=== PATIENT | female | born 1945 | race Caucasian/White ===

== ENCOUNTER → 2020-06-10 | Outpatient (CLI) | payer OTHER ==
[2020-06-10 12:15] LABS: Blood Urea Nitrogen 14 mg/dL (8-24); Bun/Creatinine Ratio 21.2 (12.0-20.0); CO2, Blood 29 mmol/L (21-32); Calcium, Blood 8.7 mg/dL (8.5-10.1); Chloride, Blood 103 mmol/L (98-108); Creatinine, Blood 0.66 mg/dL (0.40-1.00); Glomerular Filtration Rate >60 (60-); Glucose, Blood 97 mg/dL (70-99); Potassium, Blood 3.7 mmol/L (3.5-5.5); Sodium, Blood 140 mmol/L (136-145); Troponin I <0.017 ng/mL (0.000-0.040)
[2020-06-10 15:45] LABS: Anion Gap 9 mmol/L (6-16)
== END | disposition home or self-care (01) ==
LOC: LAB SHORT 11:10 → LAB EV 11:10
PROVIDERS: Family Medicine
DX: I10 Essential (primary) hypertension (principal)
CPT/HCPCS: 80048; 84484

== ENCOUNTER → 2021-02-18 | Outpatient (CLI) | payer OTHER ==
[2021-02-18 13:48] LABS: Source, Urine Clean Catch
[2021-02-18 15:21] LABS: Appearance, Urine Clear (Clear); Bilirubin, Urine Neg (Neg); Blood, Urine Neg (Neg); Color, Urine Yellow (P-Yellow); Glucose Qualitative, Urine Neg (Neg); Ketones, Urine Neg (Neg); Leukocyte Esterase, Urine Neg (Neg); Nitrite, Urine Neg (Neg); Protein, Urine Neg (Neg); Specific Gravity, Urine 1.005 (1.003-1.022); Urobilinogen, Urine NORM (Normal)
== END | disposition home or self-care (01) ==
LOC: LAB SHORT 13:43
PROVIDERS: Obstetrics & Gynecology
DX: N39.41 Urge incontinence (principal)
CPT/HCPCS: 81003

== ENCOUNTER → 2023-06-18 | Outpatient (CLI) | payer OTHER ==
[~2023-06-18] MED LIST: CEPH250A PO
== END ==
LOC: LAB SHORT 14:07 → LAB 14:07
DX: R30.0 Dysuria (principal)
CPT/HCPCS: 87086

== ENCOUNTER 2023-07-14 09:15 | Day surgery (SDC) | payer OTHER ==
[~2023-07-14] VITALS: Ht 167.6 cm; Wt 63.0 kg
[2023-07-14] VITALS (13 sets, daily range): BP systolic 120–180; BP diastolic 68–135
[~2023-07-14 09:15] MED LIST changes: +ALBU90OI INH; +ALLEGRA ALLERG180 MG PO; +ATEN25 PO; +BUPR100ER PO; +BUSPIRONE HCL7.5 M1 PO; +CAPT50 PO; +Flonase 0.05% N16 GM
[2023-07-14] MEDS ORDERED: ATEN50 PO (10:42)
[2023-07-14] MEDS ORDERED: ARIPIPRAZOLE2 M1 PO (10:42)
[2023-07-14] MEDS ORDERED: RANOLAZINE ER500 M2 PO (10:43)
[2023-07-14] MEDS ORDERED: ZOLOFT25 MG PO (10:43)
--- NOTE | 2023-07-14 12:06 | NUR ---
PT BACK TO RECOVERY ROOM FROM LAB. PT A&Ox4. RADIAL SITE SOFT AND NON-TERNDER. NO BLEEDING NOTED. PT GIVEN ORANGE JUICE AND WATER. PT SITTING UP IN RECLINER.
--- NOTE | 2023-07-14 12:27 | NUR ---
PT GIVEN LUNCH TRAY.
--- NOTE | 2023-07-14 13:02 | NUR ---
2CC REMOVED FROM TR BAND. SITE SOFT AND NON-TENDER. NO BLEEDING NOTED.
--- NOTE | 2023-07-14 13:42 | NUR ---
2CC REMOVED FROM TR BAND. SITE SOFT AND NON-TENDER.
--- NOTE | 2023-07-14 13:55 | NUR ---
2CC REMOVED FROM TR BAND. SITE SOFT AND NON-TENDER. NO BLEEDING NOTED.
--- NOTE | 2023-07-14 14:03 | NUR ---
2CC REMOVED FROM TR BAND. SITE SOFT AND NON-TENDER. NO BLEEDING NOTED.
--- NOTE | 2023-07-14 14:37 | NUR ---
TR BAND DEFLATED @ 1415. SITE SOFT AND NON-TENDER. NO BLEEDING NOTED.
--- NOTE | 2023-07-14 15:31 | NUR ---
PT GIVEN DC INSTRUCTIONS AND VERBALIZED UNDERSTANDING. IV OUT. PT CHANGED. RADIAL SITE SOFT AND NON-TENDER PER PT. NO BLEEDING NOTED. CLOTH DOT, SLING, ARM BOARD APPLIED. PT CALLED FOR TAXI. PT TAKEN TO LBY VIA WC.
== END 2023-07-14 16:04 | disposition home or self-care (01) ==
LOC: MHTC 09:15
DX: I35.0 Nonrheumatic aortic (valve) stenosis (principal); I20.0 Unstable angina; R06.09 Other forms of dyspnea; I71.21 Aneurysm of the ascending aorta, without rupture; Z88.0 Allergy status to penicillin
CPT/HCPCS: 76937; 93454; 99152; 99153; C1769; C1887; C1894; J1644; J2250; J2405; J3010; J7030; J7050; Q9967

== ENCOUNTER 2023-11-10 04:44 | Observation (INO) | payer OTHER ==
[~2023-11-10] VITALS: Ht 162.6 cm; Wt 61.2 kg
[~2023-11-10 04:44] MED LIST changes: +ARIPIPRAZOLE2 M1 PO; +ATEN50 PO; +RANOLAZINE ER500 M2 PO; +ZOLOFT25 MG PO
[2023-11-10 05:04] LABS: BASOPHILS ABSOLUTE AUTO 0.04 K/mm3 (0.00-0.23); BASOPHILS PERCENT AUTO 1 % (0-2); EOSINOPHILS ABSOLUTE AUTO 0.07 K/mm3 (0.00-0.68); EOSINOPHILS PERCENT AUTO 1 % (0-6); Hematocrit 41.7 % (33.0-51.0); Hemoglobin 13.8 g/dL (11.5-16.0); IMMATURE GRAN ABSOLUTE AUTO 0.02 K/mm3 (0.00-0.10); IMMATURE GRAN PERCENT AUTO 0 % (0-1); LYMPHOCYTES ABSOLUTE AUTO 2.73 K/mm3 (0.84-5.20); LYMPHOCYTES PERCENT AUTO 47 % (21-46); MONOCYTES ABSOLUTE AUTO 0.42 K/mm3 (0.16-1.47); MONOCYTES PERCENT AUTO 7 % (4-13); Mean Corpuscular HGB 31.2 pg (26.0-34.0); Mean Corpuscular HGB Conc 33.1 g/dL (31.5-36.5); Mean Corpuscular Volume 94 fL (80-100); Mean Platelet Volume 11.8 fL (9.1-12.4); NEUTROPHILS ABSOLUTE AUTO 2.56 K/mm3 (1.96-9.15); NEUTROPHILS PERCENT AUTO 44 % (41-73); Platelet Count 178 K/mm3 (150-400); RDW Coefficient Variation 13.4 % (11.7-14.2); RDW Standard Deviation 46.5 fL (35.1-46.3); Red Blood Cell Count 4.43 M/mm3 (3.80-5.20); White Blood Cell Count 5.84 K/mm3 (4.00-11.30)
[2023-11-10 05:20] LABS: Prothrombin Time Results 10.5 Sec (9.7-11.5)
[2023-11-10 05:22] LABS: Albumin/Globulin Ratio 1.2 (0.8-1.8); Bilirubin, Total 0.6 mg/dL (0.1-1.0); Bun/Creatinine Ratio 28.8 (12.0-20.0); Calcium, Blood 9.4 mg/dL (8.5-10.1); Creatinine, Blood 0.7 mg/dL (0.40-1.00); Globulin, Blood 3.2 g/dL (2.2-4.0); Total Protein, Blood 7.2 g/dL (6.4-8.2)
[2023-11-10 06:56] LABS: Cholesterol 187 mg/dL (50-200); Triglycerides 121 mg/dL (30-160)
[2023-11-10] MEDS ORDERED: FURO20 PO (09:38)
[2023-11-10] MEDS ORDERED: Estrace Vagin42.5 GM UR (09:40)
[2023-11-10] MEDS ORDERED: SERT50 PO (09:46)
[2023-11-10] MEDS ORDERED: ABILIFY MYCITE2 M2 PO (10:36)
[2023-11-10] MEDS ORDERED: DOCU100 PO (10:37)
[2023-11-10 10:56] VITALS: BP 156/81
[2023-11-10] MEDS ORDERED: Ondansetron HCl 2 MG / ML 2ML Vial IV PRN (13:30)
[2023-11-10] MEDS ORDERED: Temazepam 15 MG Cap PO PRN (13:35)
[2023-11-10] MEDS ORDERED: Ondansetron 4 MG TAB PO PRN (13:35)
[2023-11-10] MEDS ORDERED: Acetaminophen 325 MG TABLET PO PRN (13:35)
[2023-11-10] MEDS ORDERED: Docusate Sodium 100 MG Cap PO PRN (13:40)
[2023-11-10] MEDS ORDERED: Albuterol HFA200 ACT/6.7 GM INH INH PRN (13:50)
[2023-11-10 15:38] VITALS: BP 141/73
--- NOTE | 2023-11-10 18:46 | NUR ---
SHIFT SUMMARY MS JENNINGS WAS ADMITTED TO MEDICAL UNIT FROM ER AT 1025AM. SHE HAS LEFT LEG/FOOT WEAKNESS AND LEFT ARM/HAND WEAKNESS. 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 C/O NUMBNESS TO LEFT JAW AND RESOLVING TINGLING TO LEFT FACE AND LEFT ARM. CAROTID DOPPLAR AND ECHO DONE AT BEDSIDE. MRI SCREENING FORM FAXED EARLIER, AWAITING MRI. WORKED WITH PHYSICAL THERAPIST. PT EDUCATED ON FALL PRECAUTIONS, SHE HAS SOME URGENCY/ STRESS INCONTINENCE AND VERBALISED UNDERSTANDING THAT SHE SHOULD NOT GET UP OOB WITHOUT ASSISTANCE. BED LOW, BED ALARM ON. CALL LIGHT IN REACH.
[2023-11-10] MEDS ORDERED: Clopidogrel Bisulfate 75 MG Tab PO SCH (19:00)
[2023-11-10 19:31] VITALS: BP 119/86
[2023-11-10] MEDS ORDERED: Ranolazine 500 MG ER Tablet PO SCH (21:00)
[2023-11-11 03:12] VITALS: BP 140/78
[2023-11-11 07:25] VITALS: BP 138/83
[2023-11-11] MEDS ORDERED: Lisinopril 20 MG Tab PO SCH (09:00)
[2023-11-11] MEDS ORDERED: Aspirin 81 MG Chew PO SCH (09:00)
[2023-11-11] MEDS ORDERED: Sertraline HCl 50 MG Tab PO SCH (09:00)
[2023-11-11] MEDS ORDERED: Enoxaparin 40 MG/0.4 ML SYR SC SCH (09:00)
[2023-11-11] MEDS ORDERED: Atenolol 50 MG Tab PO SCH (09:00)
[2023-11-11] MEDS ORDERED: Furosemide 20 MG Tab PO SCH (09:00)
[2023-11-11] MEDS ORDERED: Fluticasone 0.05% Nasal Spray SCH (09:00)
[2023-11-11] MEDS ORDERED: ARIPiprazole 2 MG Tablet PO SCH (09:00)
[2023-11-11] MEDS ORDERED: Atorvastatin 10 MG Tab PO SCH (12:00)
[2023-11-11 16:55] LABS: CHOL/HDL RATIO 3.7; Cholesterol 177 mg/dL (50-200); HDL Cholesterol 48 mg/dL (>39); LDL/HDL RATIO 2.3; Low Density Lipoprotein Chol 109 mg/dL (0-110); Triglycerides 102 mg/dL (30-160); Very Low Density Lipoprot Chol 20 mg/dL (6-32)
--- NOTE | 2023-11-11 17:48 | NUR ---
SHIFT SUMMARY PT USING FWW IN ROOM TO BATHROOM AND BACK. NEURO CHECKS WNL-HAND AND LEG STRENGTH APPEAR EQUAL. MRI ORDERED AND TECH REPORTS OF 1714 THEY HAVENT RECEIVED THE INFORMATION THEY NEED FROM JYOTI FROM [facility] LAST WEEK YET TO PERFORM MRI SAFELY. PT WITH NO PAIN THROUGH SHIFT. GRETEL BRANNON COMPLETED THIS MORNING. NO S/S OF ASPIRATION WITH MEALS OR TAKING HER MEDS.
[2023-11-11 19:39] VITALS: BP 109/76
[2023-11-12 02:45] VITALS: BP 112/78
--- NOTE | 2023-11-12 05:51 | NUR ---
END OF SHIFT SUMMARY PT A&O x4, VSS, AFEBRILE. PT ON RA, RESP RATE EVEN AND UNLABORED. PT SLEPT WELL OVERNIGHT. PT CALLS APPROPRIATELY FOR ASSISTANCE WITH TRANSFERS WITH [facility]. PT DENIED CHEST PAIN, NO SOB, NO PAIN OR DISCOMFORT. PT PLEASANT AND COOPERATIVE WITH CARE PROVIDED. PT ON TELE WITH RATE AND RHYTHM SINUS SKYE WITH ALTERATING BUNDLE BRANCH BLOCKS. PT ADMITTED FOR NUMBNESS, AND TINGLING TO L SIDE OF FACE AND NECK, EVENTUALLY SPREADING TO HER L UPPER AND LOWER EXTREMETIES. PT WORKED WELL WITH THERAPY YESTERDAY ON DAY SHIFT. PT ABLE TO SWALLOW WITHOUT ANY DIFFICULTIES. PT TAKES HER MEDS WHOLE WITH WATER. WAITING FOR DOCUMENTATION FROM [facility] THAT WAS PERFORMED AT [facility]. DAY SHIFT RN REQUESTED INFORMATION FROM [facility]RI[facility] TO SEND HERE TO MAKE SURE SHE IS SAFE TO GO FORWARD WITH MRI. CALL LIGHT WITHIN REACH, WCTM.
[2023-11-12 07:34] VITALS: BP 113/61
--- NOTE | 2023-11-12 08:17 | NUR ---
Pt. is awake and welcomes my visit. Pt. inquires about Prescription Clerk [employer] Gadiel, but welcomes this auto service writer at bedside. Pt. is very pleasant. Facilitate a rather lengthy life review whee Pt. verbalizes matters of being raised in a broken home, as wellas the miracle of health and neil she has experienced. Pt. displayed evidence of being comforted by the visit. Prayed with the Pt. and the Pt. prayed as well. Pt. verbalized gratitude for the spiritual care visit.
[2023-11-12] MEDS ORDERED: ASPI81CH PO (14:45)
[2023-11-12] MEDS ORDERED: ATOR20 PO (14:46)
[2023-11-12] MEDS ORDERED: CLOP75 PO (14:46)
[2023-11-12 15:09] VITALS: BP 111/75
--- NOTE | 2023-11-12 16:46 | NUR ---
SHIFT SUMMARY AND DISCHARGE PATIENT ALERT AND INTERACTIVE. PATIENT ABLE TO AMBULATE AROUND ROOM WITH STAND BY ASSIST. PATIENT STATES CURRENT ABILITIES ABOUT HER NORMAL. PATIENT NOTED TO HAVE TREMORS, SLOW SPEECH, AND FREQUENT BLINKING. PATIENT DENIES DX OF PARKINSONS. PATIENT WORKED WITH PT AND OT. PATIENT ABLE TO PARTICIPATE WITH SHOWER AND SAT UP IN CHAIR MOST OF THE DAY. PATIENT EAGER TO GO HOME. DISCHARGE INSTRUCTIONS REVIEWED WITH PATIENT. BELONGINGS SENT HOME WITH PATIENT. ROOM CHECK DONE BEFORE PATIENT DEPARTED. IV DC'D AND TELE REMOVED BEFORE DISCHARGE.
== END 2023-11-12 16:45 | disposition home or self-care (01) ==
LOC: ER 04:44 → MEDS 04:45
PROVIDERS: Emergency Medicine; ADMIT Internal Medicine
DX: G45.9 Transient cerebral ischemic attack, unspecified (principal); I10 Essential (primary) hypertension; E78.5 Hyperlipidemia, unspecified; F32.9 Major depressive disorder, single episode, unspecified; I35.0 Nonrheumatic aortic (valve) stenosis; Z79.899 Other long term (current) drug therapy; Z88.0 Allergy status to penicillin; Z88.8 Allergy status to other drugs, medicaments and biological substances
CPT/HCPCS: 36415; 70450; 74230; 80053; 80061; 82465; 84478; 85025; 85610; 92526; 92610; 92611; 93005; 93010; 93306; 93880; 94760; 96372; 96374; 97110; 97116; 97161; 97165; 97535; 99285-25; A9270; G0378; J1650; J2405

== ENCOUNTER 2024-05-25 12:36 | Day surgery (SDC) | payer OTHER ==
[~2024-05-25] VITALS: Ht 167.6 cm; Wt 65.7 kg
[~2024-05-25 12:36] MED LIST changes: +ABILIFY MYCITE2 M2 PO; +ASPI81CH PO; +ATOR20 PO; +Balanced Salt Epinephrine Irrigation Solution 500 mL IR SCH; +CLOP75 PO; +DOCU100 PO; +Estrace Vagin42.5 GM UR; +FURO20 PO; +Lidocaine HCl/Pf 1% 5 ML VIAL XX SCH; +Moxifloxacin HCL 0.5 MG/0.1 ML 0.4MLSYR RIGHTEYE SCH; +NS 500 ML IV ONE; +PHENYLEPHRINE\\TROPICAMIDE\\TETRACAINE OPHTHALMIC DILATING SOLN RIGHTEYE PRN; +Povidone-Iodine 450 DROP/30 ML Solution ONE; +Povidone-Iodine 450 DROP/30 ML Solution RIGHTEYE SCH; +SERT50 PO; +Tetracaine HCl/Pf 0.5% Opth Soln 4 ml ONE; +Triamcinolone Inj Susp 40 MG / ML 1ML Vial INJ SCH; +Triamcinolone Inj Susp 40 MG / ML 1ML Vial ONE
[2024-05-25] MEDS ORDERED: Amlodipine Bes2.5 MG (13:24)
[2024-05-25] MEDS ORDERED: NS 1,000 ML IV ONE (13:31)
[2024-05-25] MEDS ORDERED: Midazolam HCl 1MG / ML 2ML Vial ONE (13:41)
[2024-05-25] MEDS ORDERED: Tetracaine HCl 0.5% Opth Soln 15 ml RIGHTEYE ONE (13:45)
--- NOTE | 2024-05-25 13:47 | NUR ---
05/25/24 [id number] Kassie Dubose CONSULTED DUE TO PT HAVING AN ALLERGY TO OFLOXOCIN. PT STATES SWELLING IS THE REACTION. SPOKE WITH PT AND SHE CONFIRMED THE PREOPERATIVE DROPS DID NOT BOTHER HER. CONFIRMED IT WAS OKAY TO PROCEED WITH SURGERY.
[2024-05-25 14:20] VITALS: BP 132/69
--- NOTE | 2024-05-25 14:24 | NUR ---
05/25/24 1424 Eli Busby 1420: REPORT GIVEN TO DONNIE.ALICIA AND CARE TRANSFERRED
== END 2024-05-25 14:54 | disposition home or self-care (01) ==
LOC: ORSCSDS 12:36
PROVIDERS: Ophthalmology
PROC: 08RJ3JZ Replacement of Right Lens with Synthetic Substitute, Percutaneous Approach (ICD-10-PCS; principal; 2024-05-25 14:30)
DX: H25.811 Combined forms of age-related cataract, right eye (principal); I10 Essential (primary) hypertension; J45.909 Unspecified asthma, uncomplicated; F32.A Depression, unspecified; Z79.899 Other long term (current) drug therapy
CPT/HCPCS: J2250; J3301; J7040; V2632

== ENCOUNTER 2024-05-31 09:56 | Day surgery (SDC) | payer OTHER ==
[~2024-05-31] VITALS: Ht 167.6 cm; Wt 65.2 kg
[~2024-05-31 09:56] MED LIST changes: +Amlodipine Bes2.5 MG; +Moxifloxacin HCL 0.5 MG/0.1 ML 0.4MLSYR LEFTEYE SCH; -Moxifloxacin HCL 0.5 MG/0.1 ML 0.4MLSYR RIGHTEYE SCH; +PHENYLEPHRINE\\TROPICAMIDE\\TETRACAINE OPHTHALMIC DILATING SOLN LEFTEYE PRN; -PHENYLEPHRINE\\TROPICAMIDE\\TETRACAINE OPHTHALMIC DILATING SOLN RIGHTEYE PRN; +Povidone-Iodine 450 DROP/30 ML Solution LEFTEYE SCH; -Povidone-Iodine 450 DROP/30 ML Solution RIGHTEYE SCH
[2024-05-31] MEDS ORDERED: NS 500 ML IV ONE ×2 (10:18)
[2024-05-31] MEDS ORDERED: Tetracaine HCl 0.5% Opth Soln 15 ml LEFTEYE ONE (11:13)
[2024-05-31] MEDS ORDERED: Midazolam HCl 1MG / ML 2ML Vial ONE (11:13)
[2024-05-31 12:26] VITALS: BP 150/78
== END 2024-05-31 11:55 | disposition home or self-care (01) ==
LOC: ORSCSDS 09:56
PROVIDERS: Ophthalmology
PROC: 08RK3JZ Replacement of Left Lens with Synthetic Substitute, Percutaneous Approach (ICD-10-PCS; principal; 2024-05-31 11:30)
DX: H25.812 Combined forms of age-related cataract, left eye (principal); Z96.1 Presence of intraocular lens; G24.5 Blepharospasm; H04.123 Dry eye syndrome of bilateral lacrimal glands; I10 Essential (primary) hypertension; F32.A Depression, unspecified; I71.9 Aortic aneurysm of unspecified site, without rupture; J45.909 Unspecified asthma, uncomplicated; Z79.82 Long term (current) use of aspirin; Z79.899 Other long term (current) drug therapy
CPT/HCPCS: J2250; J3301; J7040; V2632

== ENCOUNTER → 2024-06-02 | Outpatient (CLI) | payer OTHER ==
[~2024-06-02] MED LIST changes: -Balanced Salt Epinephrine Irrigation Solution 500 mL IR SCH; -Lidocaine HCl/Pf 1% 5 ML VIAL XX SCH; -Moxifloxacin HCL 0.5 MG/0.1 ML 0.4MLSYR LEFTEYE SCH; -NS 500 ML IV ONE; -PHENYLEPHRINE\\TROPICAMIDE\\TETRACAINE OPHTHALMIC DILATING SOLN LEFTEYE PRN; -Povidone-Iodine 450 DROP/30 ML Solution LEFTEYE SCH; -Povidone-Iodine 450 DROP/30 ML Solution ONE; -Tetracaine HCl/Pf 0.5% Opth Soln 4 ml ONE; -Triamcinolone Inj Susp 40 MG / ML 1ML Vial INJ SCH; -Triamcinolone Inj Susp 40 MG / ML 1ML Vial ONE
== END ==
LOC: LAB 12:46 → LAB SHORT 12:46
DX: N39.0 Urinary tract infection, site not specified (principal)
CPT/HCPCS: 87077; 87086; 87186

== ENCOUNTER → 2024-11-16 | Outpatient (CLI) | payer OTHER | LOC: LAB 12:38 → LAB SHORT 12:38 | DX: R30.0 Dysuria (principal) | CPT/HCPCS: 87086 ==

== ENCOUNTER 2024-11-22 14:15 | Emergency (ER) | payer OTHER ==
[~2024-11-22] VITALS: Ht 167.6 cm; Wt 64.4 kg
[2024-11-22 15:05] LABS: BASOPHILS ABSOLUTE AUTO 0.03 K/mm3 (0.00-0.23); BASOPHILS PERCENT AUTO 1 % (0-2); EOSINOPHILS ABSOLUTE AUTO 0.04 K/mm3 (0.00-0.68); EOSINOPHILS PERCENT AUTO 1 % (0-6); Hematocrit 40.9 % (33.0-51.0); Hemoglobin 13.5 g/dL (11.5-16.0); IMMATURE GRAN ABSOLUTE AUTO 0.01 K/mm3 (0.00-0.10); IMMATURE GRAN PERCENT AUTO 0 % (0-1); LYMPHOCYTES ABSOLUTE AUTO 1.91 K/mm3 (0.84-5.20); LYMPHOCYTES PERCENT AUTO 35 % (21-46); MONOCYTES ABSOLUTE AUTO 0.34 K/mm3 (0.16-1.47); MONOCYTES PERCENT AUTO 6 % (4-13); Mean Corpuscular HGB 31.4 pg (26.0-34.0); Mean Corpuscular Volume 95 fL (80-100); Mean Platelet Volume 12.9 fL (9.1-12.4); NEUTROPHILS ABSOLUTE AUTO 3.14 K/mm3 (1.96-9.15); NEUTROPHILS PERCENT AUTO 58 % (41-73); Platelet Count 109 K/mm3 (150-400); RDW Coefficient Variation 13.3 % (11.7-14.2); RDW Standard Deviation 46.8 fL (35.1-46.3); White Blood Cell Count 5.47 K/mm3 (4.00-11.30)
[2024-11-22 15:24] LABS: Albumin, Blood 3.8 g/dL (3.4-5.0); Albumin/Globulin Ratio 1.5 (0.8-1.8); Bilirubin, Total 0.6 mg/dL (0.1-1.0); Bun/Creatinine Ratio 42.7 (12.0-20.0); Calcium, Blood 8.5 mg/dL (8.5-10.1); Creatinine, Blood 0.59 mg/dL (0.40-1.00); Globulin, Blood 2.5 g/dL (2.2-4.0); Potassium, Blood 3.6 mmol/L (3.5-5.5); Total Protein, Blood 6.3 g/dL (6.4-8.2)
[2024-11-22 17:17] LABS: Free Thyroxine 0.96 ng/dL (0.70-1.60)
[2024-11-22 17:19] LABS: Thyroid Stimulating Hormone 0.822 uIU/mL (0.360-4.800)
[2024-11-22] MEDS ORDERED: Cyclobenzaprine HCl 10 MG Tab PO ONE (19:40)
[2024-11-22 19:43] VITALS: BP 144/85
== END 2024-11-22 19:51 | disposition home or self-care (01) ==
LOC: ER 14:15
PROVIDERS: Emergency Medicine; Student in an Organized Health Care Education/Training Program
DX: R07.9 Chest pain, unspecified (principal); R00.1 Bradycardia, unspecified; M54.9 Dorsalgia, unspecified; G89.29 Other chronic pain; I71.21 Aneurysm of the ascending aorta, without rupture; Z88.0 Allergy status to penicillin; Z88.8 Allergy status to other drugs, medicaments and biological substances; Z88.1 Allergy status to other antibiotic agents; Z88.5 Allergy status to narcotic agent; Z79.82 Long term (current) use of aspirin; Z79.899 Other long term (current) drug therapy
CPT/HCPCS: 71046; 71275; 74174; 80053; 83690; 83880; 84439; 84443; 84484; 85025; 93005; 93010; 99285-25; A9270; Q9967